=== PATIENT | female | born 1995 | race Caucasian/White ===

== ENCOUNTER 2016-10-10 08:46 | Outpatient (CLI) ==
[2015-09-30 20:16] VITALS: BMI 30.7
[2016-10-10 13:32] LABS: FLU INTERNAL QC INTERNAL QC VALID; RAPID FLU A NEGATIVE (NEGATIVE); RAPID FLU B NEGATIVE (NEGATIVE)
== END 2016-10-10 08:47 | disposition home or self-care (01) ==
LOC: LAB 08:46
PROVIDERS: ATTEND Nurse Practitioner Family
DX: R50.9 Fever, unspecified (principal); R52 Pain, unspecified
CPT/HCPCS: 87651; 87804; 87880

== ENCOUNTER 2016-12-02 09:46 | Outpatient (CLI) ==
[2015-09-30 20:16] VITALS: BMI 30.7
[2016-12-02 15:37] LABS: FLU INTERNAL QC INTERNAL QC VALID; RAPID FLU A NEGATIVE (NEGATIVE); RAPID FLU B NEGATIVE (NEGATIVE)
== END 2016-12-02 09:47 | disposition home or self-care (01) ==
LOC: LAB 09:46
PROVIDERS: ATTEND Nurse Practitioner Family
DX: R50.9 Fever, unspecified (principal); J02.9 Acute pharyngitis, unspecified; R04.2 Hemoptysis; Z12.31 Encounter for screening mammogram for malignant neoplasm of breast
CPT/HCPCS: 36415; 80053; 85025; 87651; 87804; 87880

== ENCOUNTER 2016-12-02 09:50 | Outpatient (CLI) ==
[2015-09-30 20:16] VITALS: BMI 30.7
[2016-12-02 10:25] LABS: BASOPHILS % (AUTO) 0.3 % (0.0-3.0); EOSINOPHILS # (AUTO) 0.1 K/ul (0.0-0.7); HEMATOCRIT 37.9 % (37.0-47.0); HEMOGLOBIN 12.7 g/dl (12.0-16.0); IMMATURE GRANULOCYTE % (AUTO) 0.5 % (0.0-5.0); LYMPHOCYTES # (AUTO) 2.8 K/uL (0.60-3.4); LYMPHOCYTES % (AUTO) 19.4 (10.0-50.0); MEAN CORPUSCULAR HEMOGLOBIN 28.3 pg (27.0-31.0); MEAN CORPUSCULAR HGB CONC 33.5 (31.8-35.4); MEAN CORPUSCULAR VOLUME 84.6 fl (81.0-99.0); MONOCYTES # (AUTO) 0.7 K/uL (0.4-2.0); MONOCYTES % (AUTO) 5.2 (0-10); NEUTROPHILS # (AUTO) 10.5 K/ul (2.0-6.9); NEUTROPHILS % (AUTO) 73.6; PLATELET COUNT 366 10^3/uL (140-440); RED BLOOD COUNT 4.48 10^6/ul (4.20-5.40); WHITE BLOOD COUNT 14.19 K/ul (4.6-10.2)
[2016-12-02 10:42] LABS: ALBUMIN 4.2 g/dL (3.4-5.0); ALBUMIN/GLOBULIN RATIO 0.89; ANION GAP 14.8; BILIRUBIN,TOTAL 0.86 mg/dL (0.00-1.20); BUN/CREATININE RATIO 13.04; CALCIUM 10.2 mg/dL (8.2-10.2); CREATININE 0.69 mg/dL (0.60-1.30); POTASSIUM 3.8 mmol/L (3.5-5.10); TOTAL PROTEIN 8.9 g/dL (6.4-8.2)
--- NOTE | 2016-12-02 10:58 | DI ---
EXAM: CHEST FRONTAL AND LATERAL VIEWS HISTORY: Hemoptysis. COMPARISON: 09/30/2015 FINDINGS: Normal heart size. Lungs are grossly clear. Normal vascularity. No lymphadenopathy or mass identified radiographically. There is no pleural fluid. IMPRESSION: No acute cardiopulmonary process demonstrated.
== END 2016-12-02 09:51 | disposition home or self-care (01) ==
LOC: LAB 09:50
PROVIDERS: ATTEND Nurse Practitioner Family
DX: Z12.31 Encounter for screening mammogram for malignant neoplasm of breast (principal); R04.2 Hemoptysis
CPT/HCPCS: 36415; 80053; 85025

== ENCOUNTER 2016-12-08 16:00 | Outpatient (CLI) ==
[2015-09-30 20:16] VITALS: BMI 30.7
== END 2016-12-08 16:01 | disposition home or self-care (01) ==
LOC: AMBL 16:00
PROVIDERS: ATTEND Internal Medicine
DX: T50.992A Poisoning by other drugs, medicaments and biological substances, intentional self-harm, initial encounter (principal)

== ENCOUNTER 2017-05-29 10:21 | Outpatient (CLI) ==
[2015-09-30 20:16] VITALS: BMI 30.7
[2017-05-29 10:43] LABS: BASOPHILS % (AUTO) 0.5 % (0.0-3.0); EOSINOPHILS # (AUTO) 0.2 K/ul (0.0-0.7); EOSINOPHILS % (AUTO) 2.9 % (0.0-7.0); HEMOGLOBIN 12.2 g/dl (12.0-16.0); IMMATURE GRANULOCYTE % (AUTO) 0.4 % (0.0-5.0); LYMPHOCYTES # (AUTO) 2.3 K/uL (0.60-3.4); LYMPHOCYTES % (AUTO) 28.4 (10.0-50.0); MEAN CORPUSCULAR HEMOGLOBIN 27.8 pg (27.0-31.0); MEAN CORPUSCULAR HGB CONC 33.9 (31.8-35.4); MONOCYTES # (AUTO) 0.4 K/uL (0.4-2.0); MONOCYTES % (AUTO) 5.4 (0-10); NEUTROPHILS % (AUTO) 62.4; PLATELET COUNT 339 10^3/uL (140-440); RED BLOOD COUNT 4.39 10^6/ul (4.20-5.40); WHITE BLOOD COUNT 7.95 K/ul (4.6-10.2)
[2017-05-29 11:34] LABS: ALBUMIN 3.7 g/dL (3.4-5.0); ALBUMIN/GLOBULIN RATIO 0.86; ANION GAP 11.9; BILIRUBIN,TOTAL 0.56 mg/dL (0.00-1.20); BUN/CREATININE RATIO 12.3; CALCIUM 9.9 mg/dL (8.2-10.2); CHOL/HDL RATIO 3.5 (4.5-5.5); CREATININE 0.65 mg/dL (0.60-1.30); POTASSIUM 3.9 mmol/L (3.5-5.10)
== END 2017-05-29 10:22 | disposition home or self-care (01) ==
LOC: CAR 10:21
PROVIDERS: ATTEND Nurse Practitioner Family
DX: R07.9 Chest pain, unspecified (principal); E66.3 Overweight
CPT/HCPCS: 36415; 80053; 80061; 84443; 85025; 93005; 93010

== ENCOUNTER 2018-07-03 19:35 | Emergency (ER) ==
[2018-07-03 19:50] VITALS: BP 118/83; TEMP 98.2; BMI 39.0
[2018-07-03] MEDS ORDERED: BENADRYL 50 MG in SODIUM CHLORIDE 100 ML IV STA (19:58)
[2018-07-03] MEDS ORDERED: SOLU-MEDROL 125 MG IVP STA (19:58)
[2018-07-03] MEDS ORDERED: BENADRYL ONE (20:23)
[2018-07-03] MEDS ORDERED: BENADRYL IVP STA (20:25)
[2018-07-03] MEDS ORDERED: TORADOL IVP STA (21:43)
[2018-07-03] MEDS ORDERED: DOXY-100 100 MG in SODIUM CHLORIDE 100 ML IV STA (21:44)
--- NOTE | 2018-07-03 21:50 | ED.PDOC ---
General ED Provider: Dr. KIRTI NAVA Chief Complaint: Rash Stated Complaint: 2 day history of lateral Trank masses that are itchy Time Seen by Physician: 20:00 Mode of Arrival: Walk-In Information Source: Patient Primary Care Provider: JENA OROZCO Nursing and Triage Documentation Reviewed and Agree: Yes Does patient meet sepsis criteria?: No System Inflammatory Response Syndrome: Not Applicable Sepsis Protocol: For patient's 13 years and over: Temp is 96.8 and below OR 101 and greater Pulse >90 BPM Resp >20/minute Acutely Altered Mental Status Are patient's symptoms suggestive of a new infection, such as: -Pneumonia -Skin, Soft Tissue -Endocarditis -UTI -Bone, Joint Infection -Implantable Device -Acute Abdominal Infection -Wound Infection -Meningitis -Blood Stream Catheter Infection -Unknown Skin Complaint Exam - Skin Rash/Itching Complaint/Exam Onset/Duration: 2 days Symptoms Are: Still present Initial Severity: Mild Current Severity: Moderate Location: Lateral Trank areas bilaterally Potential Exposures: Reports: Unknown Prior Treatment: Ibuprofen Aggravating: Reports: Heat, Clothing Alleviating: Reports: None Associated Signs and Symptoms: Denies: Difficulty breathing, Fever, Chills Skin Findings: Present: Target lesions, Papules, Pustules Body Picture: 1 - rash 2 - rash Differential Diagnoses: Viral Exanthema Review of Systems - Review Of Systems Constitutional: Reports: No symptoms Eyes: Reports: No symptoms Ears, Nose, Mouth, Throat: Reports: No symptoms Respiratory: Reports: No symptoms Cardiac: Reports: No symptoms GI: Reports: No symptoms : Reports: No symptoms Musculoskeletal: Reports: No symptoms Skin: Reports: Lesions, Rash Neurological: Reports: Anxiety Endocrine: Reports: No symptoms Hematologic/Lymphatic: Reports: No symptoms All Other Systems: Reviewed and Negative Past Medical History - Past Medical History Previously Healthy: Yes Endocrine: Reports: None Cardiovascular: Reports: None Respiratory: Reports: None Hematological: Reports: None Gastrointestinal: Reports: None Genitourinary: Reports: None Neuro/Psych: Reports: None Musculoskeletal: Reports: None Cancer: Reports: None Last Menstrual Period: 06/18/18 - Surgical History General Surgical History: Reports: None - Family History Family History: Reports: None - Social History Smoking Status: Never smoker Hx Substance Use: No Alcohol Screening: None - Immunizations Tetanus Shot up to Date: Yes Physical Exam - Physical Exam Appearance: Ill-appearing, Obese Ill-appearing: Mild Respiratory: Airway patent, Breath sounds clear, Breath sounds equal, Respirations nonlabored Cardiovascular: RRR, Pulses normal, No rub, No murmur GI/: Soft, Nontender, No masses, Bowel sounds normal, No Organomegaly Skin: Warm, Dry Neurological: Alert, Oriented Psychiatric: Anxious Critical Care Note - Critical Care Note Total Time (mins): 0 Course - Course Hematology/Chemistry: 07/03/18 20:19 07/03/18 20:19 Orders, Labs, Meds: Lab Review 07/03/18 07/03/18 07/03/18 20:19 20:19 20:19 WBC 11.06 H RBC 3.94 L Hgb 11.0 L Hct 32.7 L MCV 83.0 MCH 27.9 MCHC 33.6 RDW Coeff of Rm 12.7 Plt Count 314 Immature Gran % (Auto) 0.4 Neut % (Auto) 64.1 Lymph % (Auto) 29.1 [place] % (Auto) 5.1 Eos % (Auto) 1.0 Baso % (Auto) 0.3 Immature Gran # (Auto) 0.0 Neut # (Auto) 7.1 H Lymph # (Auto) 3.2 [place] # (Auto) 0.6 Eos # (Auto) 0.1 Baso # (Auto) 0.0 Sodium 135.0 L Potassium 3.62 Chloride 102.7 Carbon Dioxide 25.7 Anion Gap 10.22 BUN 8.8 Creatinine 0.67 Estimated GFR (MDRD) 110.00 BUN/Creatinine Ratio 13.13 Glucose 83.4 Lactic Acid Calcium 9.43 Total Bilirubin 0.40 AST 25.1 ALT 17.8 Alkaline Phosphatase 77.0 Total Protein 8.12 Albumin 4.36 Globulin 3.76 Albumin/Globulin Ratio 1.15 Procalcitonin < 0.05 Influ A Molecular Assay Influ B Molecular Assay 07/03/18 07/03/18 20:19 20:19 WBC RBC Hgb Hct MCV MCH MCHC RDW Coeff of Rm Plt Count Immature Gran % (Auto) Neut % (Auto) Lymph % (Auto) [place] % (Auto) Eos % (Auto) Baso % (Auto) Immature Gran # (Auto) Neut # (Auto) Lymph # (Auto) [place] # (Auto) Eos # (Auto) Baso # (Auto) Sodium Potassium Chloride Carbon Dioxide Anion Gap BUN Creatinine Estimated GFR (MDRD) BUN/Creatinine Ratio Glucose Lactic Acid 1.14 Calcium Total Bilirubin AST ALT Alkaline Phosphatase Total Protein Albumin Globulin Albumin/Globulin Ratio Procalcitonin Influ A Molecular Assay Negative by naat Influ B Molecular Assay Negative by naat Orders Category Date Time Status ED APPLY O2 .ONCE EMERGENCY 07/03/18 19:57 Active ED NUB CARD TENDER APPLIED .ONCE EMERGENCY 07/03/18 19:57 Active ED IV/MEDIPORT/POWERPORT .ONCE EMERGENCY 07/03/18 19:58 Active ED VITAL SIGNS Q1HR EMERGENCY 07/03/18 19:57 Active BLOOD CULTURE (ED ONLY) Stat LAB 07/03/18 20:19 Results CBC W/ AUTO DIFF Stat LAB 07/03/18 20:19 Completed COMPREHENSIVE METABOLIC PANEL Stat LAB 07/03/18 20:19 Completed FLU A/B MOLECULAR Stat LAB 07/03/18 20:19 Completed LACTIC ACID Stat LAB 07/03/18 20:19 Completed MOLECULAR GROUP A STREP Stat LAB 07/03/18 20:19 Completed PROCALCITONIN Stat LAB 07/03/18 20:19 Completed 0.9 % Sodium Chloride [Saline Flush] MEDS 07/03/18 19:58 Discontinued 1 syr IVF PRN PRN Diphenhydramine Inj [Benadryl] MEDS 07/03/18 20:23 Discontinued 50 mg .ROUTE .STK-MED ONE Diphenhydramine Inj [Benadryl] MEDS 07/03/18 20:25 Discontinued 50 mg IVP ONCE STA Doxycycline Hyclate Inj [Doxy-100] 100 mg MEDS 07/03/18 21:44 Discontinued 0.9 % Sodium Chloride [Sodium Chloride] 100 ml IV ONCE Ketorolac Tromethamine [Toradol] MEDS 07/03/18 21:43 Discontinued 30 mg IVP ONCE STA Methylprednisolone Sod Succ/Pf [Solu-Medrol 125 mg] MEDS 07/03/18 19:58 Discontinued 125 mg IVP ONCE STA Medications Discontinued Medications Generic Name Dose Route Start Last Admin Trade Name Freq PRN Reason Stop Dose Admin Diphenhydramine HCl 50 mg 07/03/18 20:25 07/03/18 20:27 Benadryl IVP 07/03/18 20:26 50 mg ONCE STA Administration Doxycycline Hyclate 100 mg/ 100 mls @ 50 mls/hr 07/03/18 21:44 07/03/18 22:02 Sodium Chloride IV 07/03/18 23:43 50 mls/hr ONCE STA Administration Ketorolac Tromethamine 30 mg 07/03/18 21:43 07/03/18 22:00 Toradol IVP 07/03/18 21:44 30 mg ONCE STA Administration Methylprednisolone Sodium Succinate 125 mg 07/03/18 19:58 07/03/18 20:29 Solu-Medrol 125 Mg IVP 07/03/18 19:59 125 mg ONCE STA Administration Sodium Chloride 1 syr 07/03/18 19:58 07/03/18 22:02 Saline Flush IVF 1 syr PRN PRN Administration To flush IV Vital Signs: Temp Pulse Resp BP Pulse Ox 07/03/18 19:40 98.2 F 86 16 118/83 98 Departure - Departure Time of Disposition: 21:50 Disposition: HOME SELF-CARE Discharge Problem: Dermatitis Instructions: Dermatitis (ED) Condition: Stable Pt referred to PMD for follow-up: Yes IPMP verified?: No Additional Instructions: Follow up with PCP in 3 days Take medications as prescribed Prescriptions: Doxycycline Hyclate 100 mg PO Q12HR #14 capsule Prednisone 20 mg PO DAILYWM #5 tablet Allergies/Adverse Reactions: Allergies Penicillins Allergy (Severe, Unverified 09/30/15 20:17) Anaphylaxis Home Medications: Ambulatory Orders Norethindrone AC-Eth Estradiol [Gildess 1 mg-20 Mcg Tablet] 1 tab PO DAILY 11/26 Doxycycline Hyclate 100 mg PO Q12HR #14 capsule 07/03/18 Prednisone 20 mg PO DAILYWM #5 tablet 07/03/18 Disposition Discussed With: Patient, Family
== END 2018-07-03 23:59 | disposition home or self-care (01) ==
LOC: ED 19:35
DX: L30.9 Dermatitis, unspecified (principal)
CPT/HCPCS: 36415; 80053; 83605; 84145; 85025; 87040; 87502; 87651; 96365; 96375; 99283

== ENCOUNTER 2019-04-25 07:01 | Emergency (ER) ==
[2019-04-25 07:05] VITALS: BP 148/81; TEMP 97.6; BMI 41.4
--- NOTE | 2019-04-25 07:20 | ED.PDOC ---
General ED Provider: Dr. CHAITANYA KHAN Chief Complaint: Ankle Pain/Injury Stated Complaint: CC Lt Ankle Pain. States was walking her dogs and stepped in a hole, twisted/rollee her left ankle and states she felt a pop. Has swellling over and around her Lt Lat Malleolus Time Seen by Physician: 07:12 Mode of Arrival: Walk-In Information Source: Patient Exam Limitations: Clinical condition Primary Care Provider: EVAN RODRIGUEZ Nursing and Triage Documentation Reviewed and Agree: Yes Does patient meet sepsis criteria?: No System Inflammatory Response Syndrome: Not Applicable Sepsis Protocol: For patient's 13 years and over: Temp is 96.8 and below OR 101 and greater Pulse >90 BPM Resp >20/minute Acutely Altered Mental Status Are patient's symptoms suggestive of a new infection, such as: -Pneumonia -Skin, Soft Tissue -Endocarditis -UTI -Bone, Joint Infection -Implantable Device -Acute Abdominal Infection -Wound Infection -Meningitis -Blood Stream Catheter Infection -Unknown Musculoskeletal Complaint Exam - Ankle/Foot Complaint/Exam Location of Injury: Reports: Left, Ankle Mechanism of Injury: Reports: Trauma Onset/Duration: 6:00AM Symptoms Are: Reports: Still present Onset of Pain: Reports: Immediate Initial Severity: Moderate Current Severity: Severe Location: Reports: Diffuse Character: Reports: Throbbing Alleviating: Reports: None Aggravating: Reports: Movement, Weight bearing Able to Bear Weight: Yes (minimal) Associated Signs and Symptoms: Reports: Swelling, Weakness Related History: Denies: Similar episode Gout Risk Factors: Reports: None Related Surgical History: Reports: None Lower Extremity Findings: Present: Swelling Achilles Tendon Abnormality: No Tenderness: Present: Lateral malleolus Limited Range of Motion: Present: Eversion, Dorsiflexion Review of Systems - Review Of Systems Constitutional: Reports: No symptoms Eyes: Reports: No symptoms Ears, Nose, Mouth, Throat: Reports: No symptoms Respiratory: Reports: No symptoms Cardiac: Reports: No symptoms GI: Reports: No symptoms : Reports: No symptoms Musculoskeletal: Reports: No symptoms Skin: Reports: No symptoms Neurological: Reports: No symptoms Endocrine: Reports: No symptoms Hematologic/Lymphatic: Reports: No symptoms All Other Systems: Reviewed and Negative Past Medical History - Past Medical History Previously Healthy: Yes Endocrine: Reports: None Cardiovascular: Reports: None Respiratory: Reports: None Hematological: Reports: None Gastrointestinal: Reports: None Genitourinary: Reports: None Neuro/Psych: Reports: None Musculoskeletal: Reports: None Cancer: Reports: None Last Menstrual Period: now - Surgical History General Surgical History: Reports: None - Family History Family History: Reports: None - Social History Smoking Status: Never smoker Hx Substance Use: No Alcohol Screening: None Physical Exam - Physical Exam Appearance: Well-appearing, Well-nourished, Obese Ill-appearing: None Pain Distress: Moderate (ankle pain 10/10) Eyes: KAYLI, EOMI, Conjunctiva clear ENT: Ears normal, Nose normal, Oropharynx normal Respiratory: Airway patent, Breath sounds clear, Breath sounds equal, Respirations nonlabored Cardiovascular: RRR, Pulses normal, No rub, No murmur GI/: Soft, Nontender, No masses, Bowel sounds normal, No Organomegaly Musculoskeletal: No calf tenderness, Limited ROM (Lt ankle ), Limited strength, Edema Skin: Warm, Dry, Normal color Neurological: Sensation intact, Motor intact, Reflexes intact, Cranial nerves intact, Alert, Oriented Psychiatric: Affect appropriate, Mood appropriate Interpretation - Radiology Interpretation Radiology Interpretation By: ED Physician Radiology Results: No acute changes (no fracture identified-lt ankle) Exam Interpreted: Other (lt ankle) Critical Care Note - Critical Care Note Total Time (mins): 0 Course - Course Orders, Labs, Meds: Orders Category Date Time Status Air cast [ED SPLINT APPLICATION] .ONCE EMERGENCY 04/25/19 08:13 Ordered CRUTCHES [ED CRUTCHES] .ONCE EMERGENCY 04/25/19 08:13 Ordered Ketorolac Tromethamine [Toradol] MEDS 04/25/19 07:31 Discontinued 30 mg IM ONCE STA ANKLE, LEFT MIN 3 VIEWS Stat RADS 04/25/19 07:14 Completed Medications Discontinued Medications Generic Name Dose Route Start Last Admin Trade Name Freq PRN Reason Stop Dose Admin Ketorolac Tromethamine 30 mg 04/25/19 07:31 04/25/19 07:56 Toradol IM 04/25/19 07:32 30 mg ONCE STA Administration Vital Signs: Temp Pulse Resp BP Pulse Ox 04/25/19 07:02 97.6 F 98 H 20 148/81 H 99 Departure - Departure Time of Disposition: 08:14 Disposition: HOME SELF-CARE Discharge Problem: Left ankle sprain Instructions: Ankle Sprain (ED), Ankle Stirrup Splint (ED) Condition: Stable Pt referred to PMD for follow-up: Yes (4-5 days) IPMP verified?: No Additional Instructions: ICE< ELEVATE, Red Wrap. Splint. See PCP in 5-7 days Allergies/Adverse Reactions: Allergies Penicillins Allergy (Severe, Unverified 04/25/19 07:05) Anaphylaxis Home Medications: Ambulatory Orders Azithromycin [Zithromax Tri-Yevgeniy] 500 mg PO DAILY 04/25/19 Fluticasone Propionate [Flonase Allergy Relief] 1 spray NS DAILY 04/25/19 Ketorolac Tromethamine [Toradol] 10 mg PO Q6H #20 tablet 04/25/19 Norgestimate-Ethinyl Estradiol [Ybx-Vn-Upmftthx Tablet] 1 each PO DAILY Ondansetron HCl [Zofran] 4 mg PO PRN PRN 04/25/19 Disposition Discussed With: Patient, Family
[2019-04-25] MEDS ORDERED: TORADOL IM STA (07:31)
--- NOTE | 2019-04-25 07:50 | DI ---
Exam: Three views of the left ankle. Comparison: None available. Reason for exam: Trauma. FINDINGS: No acute fracture or malalignment. The talar dome appears intact. No abnormal widening o f the medial or lateral clear space. Impression: No acute fracture or dislocation in the left ankle.
== END 2019-04-25 08:35 | disposition home or self-care (01) ==
LOC: ED 07:01
DX: S93.402A Sprain of unspecified ligament of left ankle, initial encounter (principal); W17.2XXA Fall into hole, initial encounter
CPT/HCPCS: 96372; 99283